=== PATIENT | male | born 1950 | race Caucasian/White ===

== ENCOUNTER 2018-03-29 07:01 | Day surgery (SDC) | payer OTHER, MEDICARE ==
[~2018-03-29] VITALS: Ht 170.2 cm; Wt 64.0 kg
[~2018-03-29 07:01] MED LIST: ALLOPURINOL100 MG PO; ASPIRIN81 M2 PO; CRESTOR10 MG PO; FINASTERIDE5 MG PO; LEVAQUIN500 MG PO; MULTIVITAMIN1 EAC2 PO
== END 2018-03-29 11:48 | disposition home or self-care (01) ==
LOC: CATH 07:01
PROC: 0JH606Z Insertion of Pacemaker, Dual Chamber into Chest Subcutaneous Tissue and Fascia, Open Approach (ICD-10-PCS; principal; 2018-03-29)
PROC: 0JPT0PZ Removal of Cardiac Rhythm Related Device from Trunk Subcutaneous Tissue and Fascia, Open Approach (ICD-10-PCS; principal; 2018-03-29)
DX: Z45.010 Encounter for checking and testing of cardiac pacemaker pulse generator [battery] (principal); I44.2 Atrioventricular block, complete; E78.5 Hyperlipidemia, unspecified; Z79.82 Long term (current) use of aspirin
CPT/HCPCS: 71045; 93005; C1785; J0690; J0696; J2250; J3010; S0020